=== PATIENT | male | born 1935 | race Hispanic/Latino ===

== ENCOUNTER 2019-03-01 06:51 | Day surgery (SDC) | payer MEDICARE, OTHER ==
[2019-02-09 14:26] VITALS: BMI 26.9
[~2019-03-01 06:51] MED LIST: Cyclopentolate 1% Opth (2 ml) OS SCH; Ketorolac Tromethamine 0.5% Opth Soln (3 ml) OS SCH; Lactated Ringer's 500 ML IV ONE; Ofloxacin 0.3% Ophth Soln OS SCH; Phenylephrine 2.5% Opht Soln OS SCH; Tropicamide 1% Opht SOLUTION OS SCH
[2019-03-01] MEDS ORDERED: Hyaluronidase Human, Recombi 150 U/ML VIAL ONE (07:32)
[2019-03-01] MEDS ORDERED: Tobramycin/Dexamethasone (Tobradex) Opth Sol (2.5 ml) ONE (07:32)
[2019-03-01] MEDS ORDERED: Povidone Iodine Ophthalmic 5% Soln ONE (07:32)
[2019-03-01] MEDS ORDERED: Tetracaine 0.5% Ophth (OR ONLY) ONE (07:32)
[2019-03-01] MEDS ORDERED: Lidocaine 2% MPF (5 ml) Inj ONE (07:32)
[2019-03-01] MEDS ORDERED: Chondroitin/Hyaluronate Opth Syringe KIT (0.55 ml-0.5 ml) IO ONE (07:32)
[2019-03-01] MEDS ORDERED: Carbachol 0.01% IO ONE (07:32)
[2019-03-01] MEDS ORDERED: Cyclopentolate 1% Opth (2 ml) OS SCH (08:00)
[2019-03-01] MEDS ORDERED: Lactated Ringer's 500 ML IV ONE (08:17)
[2019-03-01 08:44] VITALS: PULSE 70
[2019-03-01] MEDS ORDERED: Propofol 10 mg/ml Inj (20 ML) ONE (09:11)
[2019-03-01] MEDS: Tobramycin/Dexamethasone OPHT OINT ONE ×2 (09:33→09:42)
[2019-03-01 11:51] VITALS: BP 144/68; RESP 15; TEMP 97.6; O2SAT 97
--- NOTE | 2019-03-05 07:15 | OP ---
PROCEDURE DATE: 03/01/2019 PREOPERATIVE DIAGNOSIS: Cataract left eye. POSTOPERATIVE DIAGNOSIS: Cataract left eye. OPERATIVE PROCEDURE: Cataract extraction with implant left eye. SURGEON: Goran Bardales MD ANESTHESIA TYPE: Local, standby. COMPLICATIONS: None. PROCEDURE: Local anesthesia was achieved using a mixture of 1% lidocaine and Amphadase. The patient was then prepped and draped in the usual sterile fashion for ophthalmic surgery. Betadine drops were placed into the eye. A lid speculum was used and a side port incision was made using a 15 degree blade. Viscoelastic was used to fill the anterior chamber and a 2.7 millimeter slit blade was used to create a surgical opening. Additional viscoelastic was placed into the eye and a capsulorrhexis was performed. Hydrodissection and delineation were then carried out. Phacoemulsification of the nucleus was performed with ease and cortical cleanup was achieved without difficulty. The capsular bag was refilled using viscoelastic and a posterior chamber lens was inserted through the existing wound and placed into the capsular bag and easily centered. All viscoelastic was then aspirated from the eye and Miochol was instilled for good symmetric pupillary constriction. The side port wound was hydrated as necessary and a good watertight closure was observed at the conclusion of the case. A TobraDex soaked collagen shield was then placed over the eye. The lid speculum was removed. TobraDex ointment was placed onto the eye and a patch and shield were placed. The patient tolerated the procedure well. Goran Bardales MD
== END 2019-03-01 10:50 | disposition home or self-care (01) ==
LOC: C.SDS 06:51
PROVIDERS: ATTEND Ophthalmology
DX: H25.12 Age-related nuclear cataract, left eye (principal)
CPT/HCPCS: 66984; J2704; J3470; J7120; V2632